=== PATIENT | male | born 1955 | race Caucasian/White ===

== ENCOUNTER → 2017-03-04 | Outpatient (CLI) | payer MEDICARE, MEDICAID | END | disposition home or self-care (01) | LOC: PCVCCLINIC 13:29 | PROVIDERS: ATTEND Internal Medicine Cardiovascular Disease | DX: I48.92 Unspecified atrial flutter (principal); J44.9 Chronic obstructive pulmonary disease, unspecified; G89.29 Other chronic pain; M54.9 Dorsalgia, unspecified; B18.2 Chronic viral hepatitis C; E78.5 Hyperlipidemia, unspecified; F17.200 Nicotine dependence, unspecified, uncomplicated; F11.20 Opioid dependence, uncomplicated; Z79.82 Long term (current) use of aspirin | CPT/HCPCS: 80061; 93005; G0463 ==

== ENCOUNTER → 2017-03-14 | Outpatient (CLI) | payer MEDICARE, MEDICAID ==
--- NOTE | 2017-03-15 13:07 | PCVCIMAG ---
APPROVED REPORT Study performed: 03/14/2017 15:11:16 EXAM: Comprehensive 2D, Doppler, and color-flow Echocardiogram Patient Location: Echo lab Status: routine BSA: 2.25 HR: 100 bpmBP: 132/78 mmHg Rhythm: Tachycardia Other Information Study Quality: Technically Limited Indications COPD Atrial Fibrillation Dyspnea Palpitations 2D Dimensions LVEF(%): 51.06 (>50%) IVSd: 9.13 (7-11mm)LVOT Diam: 25.46 (18-24mm) LVDd: 48.04 mm PWd: 10.15 (7-11mm) LVDs: 35.52 (25-40mm) Left Atrium: 44.19 (27-40mm) Aortic Root: 32.80 mm LV Single Plane 4CH: 45.71 % LV Single Plane 2CH: 43.54 %Cheney's LVEF: 44.63 % Volumes Left Atrial Volume (Systole) Single Plane 4CH: 35.30 mLSingle Plane 2CH: 66.76 mL Biplane LA Volume: 56.00 mLLA ESV Index: 25.00 mL/m2 Aortic Valve AoV Peak Brad.: 1.56 m/s AO Peak Gr.: 9.73 mmHgLVOT Max P.32 mmHg LVOT Max V: 0.76 m/s LARON Vmax: 2.48 cm2 Mitral Valve E/A Ratio: 0.8 MV E Max Brad.: 0.64 m/s MV A Brad.: 0.82 m/s IVRT: 83.04 ms TDI E/Medial E': 7.11 Medial E' Brad.: 0.09 m/s Tricuspid Valve TV Vmax: 0.73 m/s Left Ventricle The left ventricle is normal size. Distal LV appears mildly dilated. mild hypokinesis distal septum. There is normal LV segmental wall motion. There is normal left ventricular wall thickness. The overall left ventricular systolic function appears low normal. LVEF is 50-55%. Grade I - abnormal relaxation pattern. Right Ventricle The right ventricle is normal size. The right ventricular systolic function is normal. Atria The left atrium size is normal. The right atrium size is normal. Aortic Valve The aortic valve is not well visualized. Aortic valve is trileaflet. No aortic regurgitation is present. There is no aortic valvular stenosis. Mitral Valve The mitral valve is normal in structure. There is no mitral valve regurgitation noted. No evidence of mitral valve stenosis. Tricuspid Valve The tricuspid valve is normal in structure. There is no tricuspid valve regurgitation noted. Pulmonic Valve The pulmonary valve is normal in structure. There is no pulmonic valvular regurgitation. Great Vessels The aortic root is normal in size. IVC is not visualized. Pericardium There is no pericardial effusion. Poor images, cannnot rule out. <Conclusion> The left ventricle is normal size. Distal LV appears mildly dilated. mild hypokinesis distal septum. There is normal left ventricular wall thickness. LVEF is 50-55%. Grade I - abnormal relaxation pattern. The right ventricle is normal size. The left atrium size is normal. The aortic valve is not well visualized. Aortic valve is trileaflet. There is no mitral valve regurgitation noted. There is no tricuspid valve regurgitation noted. There is no pericardial effusion.
== END | disposition home or self-care (01) ==
LOC: PCVCIMAG 14:18
PROVIDERS: ATTEND Internal Medicine Cardiovascular Disease
DX: I48.91 Unspecified atrial fibrillation (principal); J44.9 Chronic obstructive pulmonary disease, unspecified; R00.0 Tachycardia, unspecified; I48.92 Unspecified atrial flutter
CPT/HCPCS: 93306